=== PATIENT | female | born 1970 | race Caucasian/White ===

== ENCOUNTER 2018-08-27 09:15 | Outpatient (CLI) | payer BC | END 2018-08-27 09:16 | disposition home or self-care (01) | LOC: BICMAMMO 09:15 | PROVIDERS: ATTEND Family Medicine | DX: Z12.31 Encounter for screening mammogram for malignant neoplasm of breast (principal); R92.1 Mammographic calcification found on diagnostic imaging of breast; Z80.3 Family history of malignant neoplasm of breast; Z98.890 Other specified postprocedural states | CPT/HCPCS: 77063; 77067 ==

== ENCOUNTER 2018-10-30 16:15 | Outpatient (CLI) | payer OTHER ==
--- NOTE | 2018-10-30 17:18 | RAD ---
EXAM: RIGHT ANKLE THREE VIEWS: 10/30/18 HISTORY: Closed avulsion fracture lateral malleolus, followup. COMPARISON: 09/18/18. Minimal persistent soft tissue swelling medially and laterally. No significant change in the appearan ce of the ankle. Again, questionable tiny chip type or avulsion fracture cannot be totally excluded. The talar dome region appears intact. Calcaneal plantar and Achilles enthesophytes. IMPRESSION: Stable appearance from prior study. POS: [facility]
== END 2018-10-30 16:16 | disposition home or self-care (01) ==
LOC: BICRAD 16:15
DX: S82.61XD Displaced fracture of lateral malleolus of right fibula, subsequent encounter for closed fracture with routine healing (principal)

== ENCOUNTER 2021-02-12 12:08 | Outpatient (CLI) | payer BC | END 2021-02-12 12:09 | disposition home or self-care (01) | LOC: BICMAMMO 12:08 | PROVIDERS: ATTEND Family Medicine | DX: Z12.31 Encounter for screening mammogram for malignant neoplasm of breast (principal); Z80.3 Family history of malignant neoplasm of breast; Z91.89 Other specified personal risk factors, not elsewhere classified | CPT/HCPCS: 77063; 77067 ==

== ENCOUNTER 2021-08-15 16:54 | Day surgery (SDC) | payer BC ==
[2021-08-15] MEDS ORDERED: Ketorolac Tromethamine 30 MG/ML VIAL ONE (17:58)
[2021-08-15] MEDS ORDERED: Dexamethasone 20 MG/5 ML VIAL ONE (17:58)
[2021-08-15] MEDS ORDERED: Ondansetron PF 4 MG/2 ML Vial ONE (17:58)
[2021-08-15] MEDS ORDERED: Succinylcholine 200 MG/10 ml SYRINGE FS ONE (17:58)
[2021-08-15] MEDS ORDERED: PROPOFOL 200 MG/20 ML VIAL ONE (17:58)
[2021-08-15] MEDS ORDERED: Rocuronium Bromide 10 MG/ML (10ML VIAL) ONE (17:58)
[2021-08-15] MEDS ORDERED: Lidocaine 1% PF 5 ML VIAL ONE (17:58)
[2021-08-15] MEDS ORDERED: HYDROcodone/Acetaminophen 5/325 mg Tablet PO PRN (18:56)
[2021-08-15] MEDS ORDERED: Promethazine HCl 25 MG/ML VIAL IVPB PRN (19:01)
[2021-08-15] MEDS ORDERED: Ondansetron HCl/PF 4 MG/2 ML Vial IVP PRN (19:01)
[2021-08-15] MEDS ORDERED: HYDROmorphone 2 MG/ML VIAL SLOW IVP PRN (19:01)
[2021-08-15] MEDS ORDERED: Promethazine HCl 25 MG/ML VIAL IM PRN (19:01)
== END 2021-08-15 20:10 | disposition home or self-care (01) ==
LOC: SJX 16:54
PROVIDERS: ATTEND Surgery
PROC: 0FT44ZZ Resection of Gallbladder, Percutaneous Endoscopic Approach (ICD-10-PCS; principal; 2021-08-15)
DX: K80.12 Calculus of gallbladder with acute and chronic cholecystitis without obstruction (principal); H66.90 Otitis media, unspecified, unspecified ear; Z79.2 Long term (current) use of antibiotics; Z98.51 Tubal ligation status
CPT/HCPCS: 88304; C1713; J1100; J1885; J2405; J2704

== ENCOUNTER 2022-03-04 09:08 | Outpatient (CLI) | payer BC | END 2022-03-04 09:09 | disposition home or self-care (01) | LOC: BICMAMMO 09:08 | PROVIDERS: ATTEND Family Medicine | DX: Z12.31 Encounter for screening mammogram for malignant neoplasm of breast (principal); Z80.3 Family history of malignant neoplasm of breast; Z91.89 Other specified personal risk factors, not elsewhere classified | CPT/HCPCS: 77063; 77067 ==

== ENCOUNTER 2023-06-15 08:16 | Outpatient (CLI) | payer BC | END 2023-06-15 08:17 | disposition home or self-care (01) | LOC: BICCT 08:16 | PROVIDERS: ATTEND Family Medicine | DX: Z12.31 Encounter for screening mammogram for malignant neoplasm of breast (principal); K11.1 Hypertrophy of salivary gland; D25.9 Leiomyoma of uterus, unspecified; R59.0 Localized enlarged lymph nodes; Z80.3 Family history of malignant neoplasm of breast; Z91.89 Other specified personal risk factors, not elsewhere classified | CPT/HCPCS: 70488; 76856; 77063; 77067; 93976 ==

== ENCOUNTER 2024-02-29 14:28 | Outpatient (CLI) | payer BC | END 2024-02-29 14:29 | disposition home or self-care (01) | LOC: BICMRI 14:28 | PROVIDERS: ATTEND Family Medicine | DX: R92.333 Mammographic heterogeneous density, bilateral breasts (principal); N63.11 Unspecified lump in the right breast, upper outer quadrant; R92.8 Other abnormal and inconclusive findings on diagnostic imaging of breast | CPT/HCPCS: A9577; C8908 ==